=== PATIENT | male | born 1965 | race African-American/Black ===

== ENCOUNTER 2021-12-31 15:57 | Emergency (ER) | payer OTHER ==
[~2021-12-31] VITALS: Ht 177.8 cm; Wt 100.0 kg
--- NOTE | 2021-12-31 17:06 | PHYS DOC ---
Past Medical History Past Surgical History: Other Additional Past Surgical Histo: Back General Adult EDM: Chief Complaint: LOWER EXT PAIN HPI: HPI: Patient is a 56-year-old male who presents to the emergency department complaining of left leg swelling with knee pain and calf pain for the past 3 weeks. Currently rates his pain a 9 out of 10. Patient has a past medical hist ory of depression with PTSD, hypertension, BPH, chronic low back pain, gout, wears knee-high MAHAD hose daily, left lower extremity DVT, pulmonary emboli in 2013 following lumbar surgical repair related to bulging disks, reports a repair of this low back surgery broken screws in 2019. Patient reports a slow onset of nontraumatic left knee pain and swelling without relief of [id number] naproxen. Patient reports he takes naproxen for recurrence of gouty arthritis flareups, reports his last gouty arthritis flareup was 6 months ago. Patient reports a week and a half later without relief in pain he seen his primary care physician [facility] on 12/29/2021 who diagnosed him with gout of the left knee, started him on a 3-day dosing regimen of colchicine and prednisone. Patient states he had labs drawn as he was leaving his appointment, did not return for his follow-up appointment this past Tuesday. Patient states seem to help relieve symptoms however patient noticed on 12/26/2021 a return of [facility] pain and swelling of the entire leg with pain to the back of his knee patient also noticed some redness swelling to the medial aspect of his knee. Patient states he has never had a gout flareup in his knee, usually his gout pain manifests to either right or left great toe. Patient has not tried other pain relief methods since returning increasing symptoms this past Tuesday. Patient denies fever or chills, chest pain, shortness of breath, chest palpitations, chest or nasal congestion, denies dizziness, headaches, syncopal or near syncopal episodes. She denies rashes to the skin, denies other physical complaints or physical concerns. Patient reports she is a cigarette smoker, denies drinking alcohol stating he quit this after his 1st gout attack, smokes marijuana occasionally, denies other illicit drug use or history of IV drug use. 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 Review of Systems: Review of Systems: 14 body systems of review of systems have been reviewed. See HPI for pertinent positives and negative responses, otherwise all other systems are negative, nonpertinent or noncontributory. Constitutional: Negative except as outlined in HPI above. Skin: Negative except as outlined in HPI above. Eyes: Negative except as outlined in HPI above. HENT: Negative except as outlined in HPI above. Respiratory: Negative except as outlined in HPI above. Cardiovascular: Negative except as outlined in HPI above. GI: Negative except as outlined in HPI above. : Negative except as outlined in HPI above. Musculoskeletal: Negative except as outlined in HPI above. Integument: Negative except as outlined in HPI above. Neurologic: Negative except as outlined in HPI above. Endocrine: Negative except as outlined in HPI above. Lymphatic: Negative except as outlined in HPI above. Psychiatric: Negative except as outlined in HPI above. Heart Score: C/O Chest Pain: No Risk Factors: Risk Factors: DM, Current or recent (<one month) smoker, HTN, HLP, family history of CAD, obesity. Risk Scores: Score 0 - 3: 2.5% MACE over next 6 weeks - Discharge Home Score 4 - 6: 20.3% MACE over next 6 weeks - Admit for Clinical Observation Score 7 - 10: 72.7% MACE over next 6 weeks - Early Invasive Strategies Allergies: Allergies: Allergies Coded Allergies Type Severity Reaction Last Updated Verified No Known Drug Allergies 12/31/21 No Physical Exam: PE: Constitutional: Well developed, well nourished, no acute distress, non-toxic appearance. 56-year-old male in no apparent distress. HENT: Normocephalic, atraumatic. Eyes: Conjunctiva normal, no discharge. Neck: Normal range of motion, no stridor. Cardiovascular: No cyanosis appreciated, distal cap refill less than 2 seconds. Heart sounds are S1-S2 auscultation. Regular rate and rhythm. Lungs & Thorax: Patient is in no respiratory distress, lung sounds are clear to auscultate all lung lambert, normal work of breathing. Abdomen: Nontender, no abnormalities noted. Abdomen round, soft, patient obese, BMI 31.6. Skin: Warm, dry, no erythema, no rash. See extremity note for focused skin examination. Back: No tenderness, no deformities. Extremities: No tenderness, no cyanosis, no clubbing, ROM intact, no edema. Except for left lower extremity, swelling appreciated of thigh knee and calf. The left leg is noticeably larger than the right leg, patient had knee-high MAHAD hose on which were removed for examination, right calf measures 45 cm in diameter, left calf measures 50 cm in diameter. Positive Homans' sign of left lower extremity, 2+ pitting edema of left lower extremity below knee, positive pain to palpation of popliteal left knee, medial knee structures, slightly erythematous and warm to touch of medial skin surfaces knee, 2+ dorsalis pedis/posterior tibial pulses bilaterally, no pedal edema appreciated bilaterally, distal cap refill is less than 2 seconds feet bilaterally. Neurologic: Alert and oriented X 3, normal motor function, normal sensory function, no focal deficits noted. Psychologic: Affect normal, judgement normal, mood normal. Current Patient Data: Vital Signs: Vital Signs Date Time Temp Pulse Resp B/P (MAP) Pulse Ox O2 Delivery O2 Flow Rate FiO2 12/31/21 16:02 97.9 90 18 169/93 (118) 99 Room Air 97.9 EKG: EKG: [] Radiology/Procedures: Radiology/Procedures: REASON: DVT study left lower extremity PROCEDURE: VENOUS LOWER EXTREMITY LEFT INDICATION: Reason: DVT study left lower extremity / Spl. Instructions: / History: . Left leg pain and swelling. COMPARISON: None. TECHNIQUE: Grayscale, color and doppler ultrasound images were obtained of the left lower extremity venous vasculature. LEFT: No thrombus identified in the common femoral vein, femoral vein, popliteal vein or visualized calf veins. IMPRESSION: * No thrombus identified in deep venous system of the left lower extremity. Electronically signed by: Sherman Carpenter MD (12/31/2021 5:55 PM) [id number] STATUS: REG ER ORD. PHYSICIAN: ALEXY SAGASTUME APRN REASON: Swelling, pain, history of gout PROCEDURE: KNEE LEFT 4V EXAM: XR KNEE _4 VIEWS WITH PATELLA_LT 12/31/2021 6:35 PM CLINICAL INDICATION: Swelling, pain, history of gout COMPARISON: None TECHNIQUE: AP, oblique, lateral, and sunrise views of the left knee FINDINGS: No acute fracture. Alignment is normal. Joint spaces are maintained. No joint effusion or soft tissue abnormality. IMPRESSION: No acute osseous abnormality. Electronically signed by: Shantell Ibarra MD (12/31/2021 6:41 PM) [facility] Course & Med Decision Making: Course & Med Decision Making Pertinent Labs and Imaging studies reviewed. (See chart for details) 56-year-old male, vital signs reviewed, presents to the emergency department concerning left lower extremity pain with swelling, symptoms had slow onset 3 weeks ago. Physical examination is concerning for left lower extremity DVT, patient's Wells score is 5, high risk for DVT. Will order saline lock, CBC, CMP, PT PTT, venous Doppler left lower extremity DVT study. Will give pain medication for 9 out of 10 pain. DVT study was negative for left lower extremity DVT. Patient was given 2 mg morphine for pain, patient denies changes in pain continues 9 out of 10, will give 30 IV Toradol, will add uric acid level ESR, urinalysis assay to lab. Left knee x-ray. Left knee x-ray nonconcerning for soft tissue swelling or joint effusion, no punched-out lesions or joint destruction appreciated. The patient's ESR and serum uric acid level is elevated, no leukocytosis appreciated on CBC, serum BUN and creatinine within normal limits with GFR 68.8, sodium potassium chloride and CO2 within normal limits, urine is not infected, no uric acid crystals appreciated on urinalysis. Low suspicion for cellulitis or other infectious process. Upon reevaluation of the patient, patient reports total pain relief and is now at a 0 out of 10 pain. Discussed findings with patient, suspicious for gouty arthritis pain to the knee, recommended elevation of left lower extremity related to edema, continue wearing MAHAD hose daily, strict follow-up with primary care, patient reports having an appointment with his doctor this coming Tuesday, will keep appointment, reviewed return to ER precautions and concerns. Will start on short prednisone regimen, ibuprofen for recurring gouty arthritis pain. Patient is amenable to ED discharge planning. ED nursing reports discharge low-pressure 180/115, repeat blood pressure taken by myself after adjustment of low pressure cuff and placement on upper arm is 153/100, patient does have a history of hypertension, reports needing to take his evening dose of lisinopril, patient states he will take his evening dose when he returns home. Prasad Disclaimer: Prasad Disclaimer: This electronic medical record was generated, in whole or in part, using a voice recognition dictation system. Departure Departure Impression: Primary Impression: Left leg swelling Additional Impressions: Left knee pain Qualified Codes: M25.562 - Pain in left knee Elevated blood uric acid level Disposition: HOME / SELF CARE / HOMELESS Condition: GOOD Patient Instructions: Gout Additional Instructions: You were seen today in the emergency department for left leg swelling and left knee pain. A sonogram of your left leg did not show any concerning findings of a deep vein thrombosis or blood clot. Your lab work was concerning for gouty arthritis. You were given a intravenous NSAID called Toradol which relieved your pain. I am starting you on a short regimen of prednisone and ibuprofen, take the prednisone as directed until complete, use the ibuprofen as needed for recurrence of left knee pain, as we discussed please review gout recommended diet, [facility] your [facility] this coming Tuesday. Thank you for visiting our Emergency Department. It was a pleasure taking care of you today in the emergency department and we appreciate you trusting us with your care. If any additional problems come up don't hesitate to return to visit us. Please follow up with your primary care provider so they can plan additional care if needed and know about the problem that you had. If symptoms worsen come back to the Emergency Department. Any concerning symptoms that start such as chest pain, shortness of air, weakness or numbness on one side of the body, running high fevers or any other concerning symptoms return to the ER. EMERGENCY DEPARTMENT GENERAL DISCHARGE INSTRUCTIONS Thank you for coming to [facility] Emergency Department (ED) today and trusting us with you care. We trust that you had a positive experience in our Emergency Department. If you wish to speak to the department management, you may call the Director at [phone]. YOUR FOLLOW UP INSTRUCTIONS ARE FOLLOWS: 1. Do you have a private Doctor? If you do not have a private doctor, please ask for a resource list of physicians or clinics that may be able to assist you with follow up care. 2. The Emergency Physicain has interpreted your x-rays. The X-Ray specialist will also review them. If there is a change in the findings, you will be notified in 48 hours when at all possible. 3. A lab test or culture has been done, your results will be reviewed and you will be notified if you need a change in treatment. ADDITIONAL INSTRUCTIONS AND INFORMATION: 1. Your care today has been supervised by a physician who is specially trained in emergency care. Many problems require more than one evaluation for a complete diagnosis and treatment. We recommend that you schedule your follow up appointment as recom mended to ensure complete treatment of you illness or injury. If you are unable to obtain follow up care and continue to have a problem, or if your condition worsens, we recommend that you return to the ED. 2. We are not able to safely determine your condition over the phone nor are we able to give sound medical advice over the phone. For these safety reasons, if you call for medical advice we will ask you to come to the ED for further evaluation. 3. If you have any questions regarding these discharge instructions please call the ED at [phone]. SAFETY INFORMATION: In the interest of safety, wellness, and injury prevention; we encourage you to wear your sealbelt, if you smoke; quite smoking, and we encourage family to use a protective helmet for bicycling and other sporting events that present an increased risk for head injury. IF YOUR SYMPTOMS WORSEN OR NEW SYMPTOMS DEVELOP, OR YOU HAVE CONCERNS ABOUT YOUR CONDITION; OR IF YOUR CONDITION WORSENS WHILE YOU ARE WAITING FOR YOUR FOLLOW UP APPOINTMENT; EITHER CONTACT YOUR PRIMARY CARE DOCTOR, THE PHYSICIAN WHOSE NAME AND NUMBER YOU WERE GIVEN, OR RETURN TO THE ED IMMEDIATELY. Scripts Ibuprofen (IBUPROFEN) 600 Mg Tablet 600 MG PO PRN Q6HRS PRN for INFLAMMATION, #30 TAB 0 Refills Prov: ALEXY SAGASTUME APRN 12/31/21 Prednisone (PREDNISONE) 50 Mg Tablet 1 TAB PO DAILY for pain, #5 TAB 0 Refills Prov: ALEXY SAGASTUME APRN 12/31/21 ALEXY SAGASTUME APRN Dec 31, 2021 17:06
[2021-12-31] MEDS ORDERED: MORPHINE SULFATE 2 MG/ML INJ. IVP ONE (17:15)
[2021-12-31 17:33] LABS: BASO % 0 % (0-3); EOS # 0.2 x10^3/uL (0.0-0.7); EOS % 2 % (0-3); HEMATOCRIT 40.9 % (39.0-53.0); HEMOGLOBIN 13.2 g/dL (13.0-17.5); LYMPH # 3.2 x10^3/uL (1.0-4.8); LYMPH % 31 % (24-48); MEAN CORPUSCULAR HEMOGLOBIN 29 pg (25-35); MEAN CORPUSCULAR HGB CONC 32 g/dL (31-37); MEAN CORPUSCULAR VOLUME 89 fL (79-100); MONO % 9 % (0-9); NEUT # 6.2 x10^3/uL (1.8-7.7); NEUT % 58 % (31-73); PLATELET COUNT 283 x10^3/uL (140-400); RED BLOOD COUNT 4.59 x10^6/uL (4.30-5.70); RED CELL DISTRIBUTION WIDTH 15.3 % (11.5-14.5); WHITE BLOOD COUNT 10.6 x10^3/uL (4.0-11.0)
[2021-12-31 17:45] LABS: CALCIUM 8.2 mg/dL (8.5-10.1); CREATININE 1.3 mg/dL (0.7-1.3); GFR 68.8; POTASSIUM 4.6 mmol/L (3.5-5.1); PROTHROMBIN TIME PATIENT 12.9 SEC (11.7-14.0)
[2021-12-31 17:51] LABS: ALBUMIN 3.2 g/dL (3.4-5.0); ALBUMIN/GLOBULIN RATIO 0.9 (1.0-1.7); TOTAL BILIRUBIN 0.3 mg/dL (0.2-1.0); TOTAL PROTEIN 6.8 g/dL (6.4-8.2)
--- NOTE | 2021-12-31 17:57 | RAD ---
INDICATION: Reason: DVT study left lower extremity / Spl. Instructions: / History: . Left leg pain a nd swelling. COMPARISON: None. TECHNIQUE: Grayscale, color and doppler ultrasound images were obtained of the left lower extremity v enous vasculature. LEFT: No thrombus identified in the common femoral vein, femoral vein, popliteal vein or visualized calf ve ins. IMPRESSION: * No thrombus identified in deep venous system of the left lower extremity. Electronically signed by: Sherman Carpenter MD (12/31/2021 5:55 PM) [id number]
--- NOTE | 2021-12-31 18:44 | RAD ---
EXAM: XR KNEE _4 VIEWS WITH PATELLA_LT 12/31/2021 6:35 PM CLINICAL INDICATION: Swelling, pain, history of gout COMPARISON: None TECHNIQUE: AP, oblique, lateral, and sunrise views of the left knee FINDINGS: No acute fracture. Alignment is normal. Joint spaces are maintained. No joint effusion or soft tissue abnormality. IMPRESSION: No acute osseous abnormality. Electronically signed by: Shantell Ibarra MD (12/31/2021 6:41 PM) [facility]
[2021-12-31] MEDS ORDERED: KETOROLAC 30 MG/ML VIAL. IVP ONE (19:00)
[2021-12-31 19:13] LABS: BILIRUBIN,URINE NEGATIVE (NEG); CLARITY,URINE CLEAR; COLOR,URINE YELLOW; NITRITE,URINE NEGATIVE (NEG); PROTEIN,URINE NEGATIVE (NEG-TRACE)
[2021-12-31 19:22] LABS: BACTERIA,URINE 0 /HPF (0-FEW); RBC,URINE 0 /HPF (0-2); WBC,URINE 0 /HPF (0-4)
[2021-12-31 19:25] VITALS: BP 180/115
[2021-12-31] MEDS ORDERED: PRED50TA PO (19:50)
[2021-12-31] MEDS ORDERED: IBUP-1007 PO (19:50)
== END 2021-12-31 20:00 | disposition home or self-care (01) ==
LOC: ER 15:57
DX: R22.42 Localized swelling, mass and lump, left lower limb (principal); M25.562 Pain in left knee; E79.0 Hyperuricemia without signs of inflammatory arthritis and tophaceous disease; G89.29 Other chronic pain; I10 Essential (primary) hypertension; I82.402 Acute embolism and thrombosis of unspecified deep veins of left lower extremity; F43.10 Post-traumatic stress disorder, unspecified; M10.9 Gout, unspecified
CPT/HCPCS: 36415; 73564; 80053; 81001; 84550; 85025; 85610; 85651; 85730; 93971; 96374; 96375; 99285; J1885; J2270